=== PATIENT | female | born 1980 | race Caucasian/White ===

== ENCOUNTER 2018-04-07 13:40 | Emergency (ER) | payer MEDICAID ==
[2018-04-07 14:02] VITALS: BMI 24.5
[2018-04-07 14:05] VITALS: RESP 18; O2SAT 97
[2018-04-07] MEDS ORDERED: Sodium Chloride 0.9% 1,000 ML IV ONE (14:52)
--- NOTE | 2018-04-07 15:00 | C.PDOC ---
History Of Present Illness 37 yo female s/p vaginal delivery of baby on 03/27/18 presents to ED with c/o pelvic pain described as cramping and pressure. Patient reports no complications with baby delivery and denies same symptoms with 1st . Patient admits to vaginal bleeding denies nausea, vomiting, diarrhea or any other complaints at this time. OBGYN: Dr. Dixon Time Seen by Provider: 04/07/18 14:24 Chief Complaint (Nursing): Abdominal Pain History Per: Patient History/Exam Limitations: no limitations Onset/Duration Of Symptoms: Days Current Symptoms Are (Timing): Still Present Location Of Pain/Discomfort: Suprapubic Quality Of Discomfort: Cramping, Pressure Past Medical History Reviewed: Historical Data, Nursing Documentation, Vital Signs Vital Signs: Last Vital Signs Temp 99.0 F 04/07/18 14:01 Pulse 82 04/07/18 14:01 Resp 18 04/07/18 14:01 BP 120/76 04/07/18 14:01 Pulse Ox 97 04/07/18 14:01 Surgical History: No Surg Hx - [facility] Procedures DELIVERY OF PRODUCTS OF CONCEPTION, EXTERNAL APPROACH (03/26/18) REPAIR PERINEUM SKIN, EXTERNAL APPROACH (03/26/18) Family History: States: No Known Family Hx - Social History Hx Alcohol Use: No Hx Substance Use: No - Immunization History Hx Tetanus Toxoid Vaccination: No Hx Influenza Vaccination: No Hx Pneumococcal Vaccination: No Review Of Systems Constitutional: Negative for: Fever, Chills Gastrointestinal: Negative for: Nausea, Vomiting, Diarrhea Genitourinary: Positive for: Vaginal Bleeding, Pelvic Pain. Negative for: Dysuria, Vaginal Discharge Physical Exam - Physical Exam Appears: Non-toxic, No Acute Distress Skin: Warm, Dry, No Rash Head: Atraumatic, Normacephalic Eye(s): bilateral: Normal Inspection Oral Mucosa: Moist Neck: Normal ROM, Supple Cardiovascular: Rhythm Regular Respiratory: Normal Breath Sounds, No Rales, No Rhonchi, No Wheezing Gastrointestinal/Abdominal: Soft, Tenderness (Suprapubic), No Guarding, No Rebound Back: No CVA Tenderness Neurological/Psych: Oriented x3, Normal Speech, Normal Cognition ED Course And Treatment - Laboratory Results Result Diagrams: 04/07/18 15:08 04/07/18 15:08 O2 Sat by Pulse Oximetry: 97 (RA) Pulse Ox Interpretation: Normal Progress Note: Blood work, IV fluids, Tylenol. Will discuss case with Dr. 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 Disposition Counseled Patient/Family Regarding: Studies Performed, Diagnosis, Need For Followup, Rx Given - Disposition Referrals: Jason Dixon MD [Staff Provider] - Disposition: HOME/ ROUTINE Disposition Time: 18:10 Condition: STABLE Additional Instructions: FOLLOW UP WITH DR DIXON WITHIN 1 WEEK USE PAIN MEDICATIONS NEEDED RETURN TO ER IF SYMPTOMS WORSEN DRINK PLENTY OF FLUIDS Prescriptions: Acetaminophen [Tylenol 325mg tab] 650 mg PO Q6 PRN #30 tab PRN Reason: pain/fever Instructions: Acute Pelvic Pain (DC) Forms: [facility] (Slovak) Print Language: DUTCH - Clinical Impression Clinical Impression: pain - Scribe Statement The provider has reviewed the documentation as recorded by the Willisibkobi Chapman All medical record entries made by the Willisibkobi were at my direction and per sonally dictated by me. I have reviewed the chart and agree that the record accurately reflects my personal performance of the history, physical exam, medical decision making, and the department course for this patient. I have also personally directed, reviewed, and agree with the discharge instructions and disposition.
[2018-04-07 15:11] LABS: BASO % 0.5 % (0.0-2.0); EOS # 0.3 K/uL (0.0-0.7); EOS % 3.3 % (0.0-4.0); HEMOGLOBIN 12.8 g/dL (11.0-16.0); LYMPH # 2.7 K/uL (1.0-4.3); MEAN CELL VOLUME 86.3 fL (81.0-99.0); MEAN CORPUSCULAR HEMOGLOBIN 29.9 pg (27.0-31.0); MEAN CORPUSCULAR HGB CONC 34.7 g/dL (33.0-37.0); MEAN PLATELET VOLUME 6.8 fL (7.2-11.7); MONO # 0.5 K/uL (0.0-0.8); MONO % 6.4 % (0.0-10.0); NEUT # 4.4 K/uL (1.8-7.0); NEUT % 55.8 % (50.0-75.0); NRBC % 0.1 % (0.0-2.0); RBC 4.27 Mil/uL (3.80-5.20); RED CELL DISTRIBUTION WIDTH 12.8 % (11.5-14.5)
[2018-04-07 15:16] LABS: SQUAMOUS EPITHIAL 1 /hpf (0-5); URINE BACTERIA RARE (<OCC); URINE BILIRUBIN NEGATIVE (NEGATIVE); URINE CLARITY Clear (Clear); URINE COLOR Yellow (YELLOW); URINE GLUCOSE (UA) NORMAL (Normal); URINE LEUKOCYTE ESTERASE NEG Leu/uL (Negative); URINE PROTEIN NEGATIVE (NEGATIVE); URINE UROBILINOGEN NORMAL mg/dL (0.2-1.0)
[2018-04-07 15:23] LABS: ALB/GLOB RATIO 1.1 (1.0-2.1); ALBUMIN 3.8 g/dL (3.5-5.0); ALT/SGPT 44 U/L (9-52); AST/SGOT 28 U/L (14-36); BLOOD UREA NITROGEN 19 mg/dL (7-17); CALCIUM 9.3 mg/dl (8.6-10.4); GFR NON-AFRICAN AMERICAN > 60; LIPASE 72 U/L (23-300)
[2018-04-07 15:30] LABS: URINE BLOOD 1+ (NEGATIVE)
[2018-04-07 18:01] VITALS: BP 108/75; PULSE 59; TEMP 98.8
--- NOTE | 2018-04-07 18:09 | US ---
Date of service: 04/07/2018 HISTORY: SUPRAPUBIC PAIN AFTER LABOR 03/27 COMPARISON: None available. TECHNIQUE: Transabdominal only. Real-time technique with 2D, duplex and color Doppler FINDINGS: UTERUS: Measures 6.5 x 9.4 x 16.3 cm. Normal appearance uterus. No fibroid or other mass lesion seen. ENDOMETRIUM: Measures 9.7 mm in diameter. Fluid/debris within the endometrial and cervical canal. CERVIX: No cervical abnormality identified. RIGHT OVARY: Measures 2.2 x 2.5 cm. No solid mass. Normal flow. LEFT OVARY: Measures 2.2 x 2.4 cm. No solid mass. Normal flow. FREE FLUID: No significant free fluid noted. OTHER FINDINGS: None IMPRESSION: Trace fluid within the endometrial canal. Expected appearance uterus. Unremarkable adnexa.
== END 2018-04-07 18:38 | disposition home or self-care (01) ==
LOC: C.ER 13:40
DX: O90.89 Other complications of the puerperium, not elsewhere classified (principal)
CPT/HCPCS: 76856; 80053; 81001; 83690; 85025; 96360; 99284; J7030